=== PATIENT | male | born 1985 | race Caucasian/White ===

== ENCOUNTER 2017-04-18 08:59 | Outpatient (CLI) | payer BC ==
--- NOTE | 2017-04-18 12:26 | MRI ---
MRI RIGHT KNEE PERFORMED WITHOUT CONTRAST ENHANCEMENT: HISTORY: Knee pain. FINDINGS: The anterior as well as posterior cruciate ligaments are intact. There is a normal appearance to the lateral meniscus. There is a tear involving the medial meniscus . This tear is a slightly obliquely oriented tear, extending to the more inferior articular surface , in the body region of the meniscus. It extends as a horizontally oriented tear through the entire posterior horn and is more of a peripheral tear in the posterior horn region. The collateral ligaments and iliotibial band regions are unremarkable. The patellar articular cartilage is intact. The medial and lateral patellar retinaculum and the nirali driceps and patellar tendons are normal. IMPRESSION: Tear involving the posterior horn and body of the medial meniscus. The tear has a small radial comp onent, in the region of the body, and then more of a horizontally oriented component extending throu gh the body and posterior horn, as a nondisplaced tear. POS: MIGUELINA
--- OUTSIDE RECORDS SUMMARY | 2017-04-20 16:37 | XMS | Clinical Summary ---
:1985 Author Organization [facility] Address [address] [place] [address] Phone Care Team Providers Name Role Phone , Primary Care Provider Unavailable Allergies Not on File Current Medications Not on file Active Problems Not on file Social History Tobacco Use Types Packs/Day Years Used Date Never Assessed Sex Assigned at Date Recorded Not on file Last Filed Vital Signs Not on file Plan of Treatment Not on file Results Not on filefrom Last 3 Months
== END 2017-04-18 09:00 | disposition home or self-care (01) ==
LOC: SCSMRI 08:59
PROVIDERS: ATTEND Orthopaedic Surgery
DX: M25.561 Pain in right knee (principal); S83.241A Other tear of medial meniscus, current injury, right knee, initial encounter

== ENCOUNTER 2017-06-01 06:11 | Day surgery (SDC) | payer BC ==
--- NOTE | 2017-05-31 09:44 | HP ---
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 This has become worse over the past 12-18 months without specific injury. He describes the pain in a giving way sensation. He has had partial relief with NSAIDs, wearing a knee brace and using KT Tape. PAST MEDICAL HISTORY: The patient is otherwise in good health. He has no major medical problems. Robert gregory has seasonal allergies and takes p.r.n. medication for this. ALLERGIES: He has no known allergies. FAMILY HISTORY: Otherwise unremarkable. SOCIAL HISTORY: Otherwise unremarkable. REVIEW OF SYSTEMS: Otherwise unremarkable. PHYSICAL EXAMINATION: GENERAL: Reveals a healthy male. HEENT: Unremarkable. NECK: Supple. CHEST: Clear. HEART: Regular rate and rhythm. ABDOMEN: Soft, nontender. RECTAL/GENITAL: Deferred. EXTREMITIES: Pertinent findings are related to the right knee. There is some puffiness, but no defi nite effusion. There is tenderness over the medial joint line. There is full range of motion with p ain with extreme range of motion. There is tenderness over the medial joint line and pain with McMur ray's maneuver. There is no instability. There is a slight right antalgic gait. Neurovascular exam is intact. There is no instability. There are palpable distal pulses. No pain with range of motio n of the right hip. X-RAY FINDINGS: X-rays of the right knee are normal. MRI scan of the right knee reveals a tear of t he body and posterior horn of the medial meniscus. IMPRESSION: Internal derangement of right knee with medial meniscal tear. PLAN: Arthroscopy right knee with partial medial meniscectomy and/or debridement and shaving. The n ature of the surgery, length of recovery, and potential complications such as infection, loss of ja on, incomplete relief, thromboembolic phenomena, neurovascular injury, recurrent tear, post-traumatic degenerative arthritis, and need for additional treatment or repeat surgery have been discussed in d etail.
[2017-05-31 14:56] VITALS: BMI 26.4
[2017-06-01] MEDS ORDERED: Bupivacaine/Epinephrine 0.25% 30 ML VIAL ONE (06:44)
[2017-06-01] MEDS ORDERED: CEFAZOLIN/Water 2 GM/20 ML SYRINGE ONE (06:47)
[2017-06-01] MEDS ORDERED: Fentanyl 100 MCG/2 ML VIAL ONE ×3 (07:27→09:12)
[2017-06-01] MEDS ORDERED: Midazolam HCl 2 mg/2 ml Vial ONE (07:28)
[2017-06-01] MEDS ORDERED: Ketorolac Tromethamine 30 MG/ML VIAL ONE (08:31)
--- NOTE | 2017-06-01 09:22 | OP ---
DATE OF PROCEDURE: 06/01/2017 SURGEON: Jose Antonio Metcalf M.D. ANESTHESIA: General. PREOPERATIVE DIAGNOSIS: Medial meniscal tear, right knee. POSTOPERATIVE DIAGNOSIS: Medial meniscal tear, right knee. PROCEDURE PERFORMED: Arthroscopy with partial medial meniscectomy, right knee. OPERATIVE FINDINGS: Examination under anesthesia revealed the knee to be stable. At arthroscopy, th e patellofemoral joint was normal. There was a complex tear of the posterior horn of the medial meni scus with a large flap component. No significant arthritic change. ACL was intact. Lateral meniscu s was intact. There was some mild fraying at the free border of the meniscus, but the bulk of the me niscus was intact. No significant arthritic change. NARRATIVE REPORT: After satisfactory anesthesia was induced in supine position, the patient was plac ed in a leg gandhi and prepped and draped in the routine manner. The right leg was elevated, exsangu inated with an Esmarch bandage, and the tourniquet inflated to 300 mmHg. Broadway arthroscope was int roduced into the anterolateral portal, probe through an anteromedial portal, and inflow and outflow a ccomplished through the scope using the Se[employer] arthroscopy pump. Arthroscopy was carried out and th e above findings were noted. All findings were documented with the video printer and hard copies wer e made. Posterior horn of the medial meniscus was debrided with the use of basket forceps and motori zed shaver. The remaining rim was saucerized and balanced and probed and found to be stable. There was still an intact rim of 3-4 mm. The scope was then introduced into anteromedial portal, and all c ompartments visualized and no additional pathology found. The knee was copiously irrigated through t he scope and all instruments were then withdrawn. A 20 mL of 0.25% Marcaine with epinephrine was ins tilled into the knee joint and an additional 10 mL injected about the portal sites. The portal sites were closed with 3-0 nylon. A sterile bulky compressive dressing was applied and the tourniquet def lated after 19 minutes. The foot promptly pinked up. The patient was awakened and taken to recovery room in stable condition. There were no apparent intraoperative complications. The estimated blood loss was negligible. The patient will be discharged home in satisfactory condition. He was instructed in ice, elevation, use of crutches, and home exercise program by the Physical Therapy Department. He was given written wound care instructions and a prescription for Valley 7.5 for pain, 40 tablets. He will be rechecked in my office in 1 week or sooner if there are any problems prior to that time.
[2017-06-01] MEDS ORDERED: Lidocaine 1% PF 5 ML VIAL ONE (15:27)
[2017-06-01] MEDS ORDERED: Ondansetron HCl/PF 4 MG/2 ML Vial ONE (15:27)
[2017-06-01] MEDS ORDERED: Propofol 200 MG/20 ML VIAL ONE (15:27)
== END 2017-06-01 11:03 | disposition home or self-care (01) ==
LOC: SDC 06:11
PROVIDERS: ATTEND Orthopaedic Surgery
PROC: 0SBC4ZZ Excision of Right Knee Joint, Percutaneous Endoscopic Approach (ICD-10-PCS; principal; 2017-06-01)
DX: S83.231A Complex tear of medial meniscus, current injury, right knee, initial encounter (principal)
CPT/HCPCS: 96374; G8978-GP-CI; G8979-GP-CI; G8980-GP-CI; J1885; J2001; J2250; J2405; J2704; J3010

== ENCOUNTER 2021-11-24 14:42 | Outpatient (CLI) | payer BC | END 2021-11-24 14:43 | disposition home or self-care (01) | LOC: BICMRI 14:42 | PROVIDERS: ATTEND Nurse Practitioner Family | DX: S89.92XA Unspecified injury of left lower leg, initial encounter (principal); S83.242A Other tear of medial meniscus, current injury, left knee, initial encounter ==

== ENCOUNTER 2021-12-07 16:01 | Outpatient (CLI) | payer BC ==
[2021-12-07 16:42] LABS: #Basophils 0.1 10x3/uL (0.0-0.2); #Eosinphils 0.1 10x3/uL (0.0-0.5); #Monocytes 0.3 10x3/uL (0.0-1.1); #Neutrophils 3.3 10x3/uL (1.5-8.4); %Eosinophils 2.1 % (0.0-6.0); %Lymphocytes 29.4 % (18.0-47.0); %Neutrophils 62.3 % (40.0-75.0); Hemoglobin 14.5 g/dL (13.5-17.5); Mean Corpuscular HGB CONC 35.6 g/dL (32.0-36.0); Mean Corpuscular Hemoglobin 30.8 pg (27.0-33.0); Mean Corpuscular Volume 86.4 fl (81.2-95.1); Mean Platelet Volume 12.7 fl (7.4-10.4); Platelet Count 135 10x3/uL (150-450); RBC Distribution Width 12.3 % (11.5-14.5); Red Blood Cell (RBC) Count 4.71 10x6/uL (4.32-5.72); White Blood Cell (WBC) Count 5.2 10x3/uL (3.5-10.5)
== END 2021-12-07 16:02 | disposition home or self-care (01) ==
LOC: LABBT 16:01
PROVIDERS: ATTEND Orthopaedic Surgery
DX: Z01.812 Encounter for preprocedural laboratory examination (principal); Z20.822 Contact with and (suspected) exposure to COVID-19
CPT/HCPCS: 85025; U0003; U0005

== ENCOUNTER 2021-12-10 09:44 | Day surgery (SDC) | payer BC ==
[2021-12-09 09:46] VITALS: BMI 26.2
[2021-12-10] MEDS ORDERED: PROPOFOL 20 ML ONE (09:52)
[2021-12-10] MEDS ORDERED: CEFAZOLIN 2 GM VIAL ONE (12:22)
[2021-12-10] MEDS ORDERED: Sodium Chloride 0.9% 100 ML ONE (12:23)
[2021-12-10] MEDS ORDERED: Lidocaine 1% (PF) 30 ML VIAL ONE (13:11)
[2021-12-10] MEDS ORDERED: HYDROcodone/Acetaminophen 5/325 mg Tablet ONE (15:02)
== END 2021-12-10 16:18 | disposition home or self-care (01) ==
LOC: SDC 09:44
PROVIDERS: ATTEND Orthopaedic Surgery
PROC: 0SBD4ZZ Excision of Left Knee Joint, Percutaneous Endoscopic Approach (ICD-10-PCS; principal; 2021-12-10)
DX: S83.242A Other tear of medial meniscus, current injury, left knee, initial encounter (principal); X58.XXXA Exposure to other specified factors, initial encounter; Y93.67 Activity, basketball
CPT/HCPCS: J0690; J2001; J2704; J3490